=== PATIENT | female | born 1975 | race African-American/Black ===

== ENCOUNTER 2022-10-10 16:42 | Emergency (ER) | payer SELFPAY ==
[~2022-10-10] VITALS: Ht 172.7 cm; Wt 100.0 kg
[2022-10-10 18:45] LABS: BASOPHILS % 1.1 % (0.0-2.0); CHLORIDE 101 mEq/L (98-107); EOSINOPHILS % 1.8 % (0.0-5.0); HEMATOCRIT. 39.8 % (36.0-48.0); HEMOGLOBIN. 13.1 g/dL (12.0-16.0); LYMPHOCYTES % 27.2 % (20.0-50.0); MEAN CORPUSCULAR HEMOGLOBIN 28.2 pg (28.0-32.0); MEAN CORPUSCULAR VOLUME 85.5 fL (81.0-99.0); MEAN PLATELET VOLUME 7.7 fl (7.4-10.4); MONOCYTES % 7.5 % (2.0-8.0); NEUTROPHILS % 62.4 % (40.0-76.0); PLATELET 263 x1000/uL (130-400); RED BLOOD CELL COUNT 4.66 mill/uL (4.2-5.4); RED CELL DISTRIBUTION WIDTH 13.9 % (11.6-14.6)
[2022-10-10 18:53] LABS: PARTIAL THROMBOPLASTIN TIME 27.8 sec (23.4-31.0); PROTHROMBIN TIME 10.9 sec (9.6-11.0)
[2022-10-10 18:55] LABS: *BARBITURATES SCREEN URINE NEGATIVE (NEGATIVE); *BENZODIAZEPINES SCREEN URINE NEGATIVE (NEGATIVE); *COCAINE SCREEN URINE NEGATIVE (NEGATIVE); METHADONE URINE SCREEN NEGATIVE (NEGATIVE); OPIATES URINE SCREEN NEGATIVE (NEGATIVE); PHENCYCLIDINE URINE SCREEN NEGATIVE (NEGATIVE)
[2022-10-10 18:56] LABS: ETHANOL BLOOD < 10 mg/dL
[2022-10-10 19:10] LABS: *AMPHETAMINES SCREEN URINE PRESUMTIVE POSITIVE (NEGATIVE); CANNABINOID URINE SCREEN PRESUMTIVE POSITIVE (NEGATIVE); HCG SCREEN NEGATIVE
[2022-10-10] MEDS ORDERED: ASPIRIN 325MG EC TABLET PO ONE (20:00)
[2022-10-10 20:08] VITALS: BP 118/68
== END 2022-10-10 21:42 | disposition left against medical advice (07) ==
LOC: ER 16:42 → EDBEDREQ 21:03 → EDBEDREQTM 21:03 → ER 21:42 → CANBEDREQ 10-12 06:08
DX: R20.2 Paresthesia of skin (principal); F15.129 Other stimulant abuse with intoxication, unspecified; J45.909 Unspecified asthma, uncomplicated; I10 Essential (primary) hypertension
CPT/HCPCS: 36415; 70450; 71045; 80053; 80305; 80320; 81025; 82962; 83880; 84484; 84703; 85025; 85610; 85730; 86850; 86900; 86901; 93005; 99285; Z7610; G0480